=== PATIENT | male | born 1960 | race African-American/Black ===

== ENCOUNTER 2024-11-10 06:44 | Observation (INO) ==
--- NOTE | 2024-10-19 16:44 | History & Physical Report ---
Date of Service October 19, 2024 Assessment & Plan (1) Osteoarthritis of left hip: Plan: PRE-OP Diagnosis: Left hip osteoarthritis Planned Procedure: Left total hip arthroplasty Plan: Patient is scheduled to undergo this procedure at the [facility] with Dr. Wick on November. Risks and complications of the procedure such as: Infection, bleeding, pain, scarring, nerve blood vessel damage, weakness, wound problems, stiffness, incomplete relief of symptoms, hardware failure, hardware loosening, wear, fracture, tendon or ligament injury, dislocation, leg length inequality, blood clots, embolism, heart attack, stroke and were explained to the patient at his visit today. Informed consent to perform the procedure was obtained. Orders were sent to MOHIN[facility] Clay for the patient to obtain a CBC with differential, complete metabolic panel, PT/INR, blood type and screen, urinalysis, urine culture and sensitivity, EKG, and a nasal culture for MRSA. Patient will also need preoperative medical clearance from their primary care provider. Patient states that he plans on doing his own therapy for the most part. He states that therapy has offered 1 time a month and I provided him an order to do this with a therapist that comes to the [facility]. Patient will need a walker, raised toilet seat, shower chair and a hip kit. During today's visit we reviewed the total hip packet as well as precautions. We discussed discharge planning from the hospital. I wrote specific instructions in his packet for the [facility] to provide him with oxycodone for postoperative pain control, diclofenac sodium for postoperative pain and inflammation relief, extra-strength Tylenol for supplemental pain control and 81 mg aspirin twice daily for the first 30 days postoperatively for blood clot prevention. Patient will be scheduled for 2-week postoperative follow-up visit with myself on November 23, 2024 at 8:15 AM.. This chart was completed utilizing [employer] voice recognition software. Grammatical errors, random word insertions, pronoun errors, and in complete sentences are an occasional consequence of the system. Any questions or concerns about the content, text, or information contained within the body of this dictation should be addressed directly to the physician for clarification. History of Present Illness Chief Complaint: Chief Complaint: Left hip pain Primary Care Provider: MOHINI Clay History of Present Illness (including history relevant to procedure): This 64-year-old male inmate from [facility] presents to the clinic today for his preoperative history and physical. Patient complains of a 3 to 4-year history of significant left hip pain localized to the groin and posterior lateral aspect of his hip. Patient states the range of motion of his hip is very limited. He states his gait is antalgic. He states that his glutes feel very tight and he has radiation of pain from his lower back into his groin. He states that he has been on oral Voltaren 100 mg daily which does provide a little relief. He states that he has had multiple corticosteroid injections both intra-articular and to his trochanteric bursa without relief of his symptoms. Patient states he has great difficulty putting on socks or shoes. He states he is not able to participate in activities that he used to. Due to failed conservative management he is electing to proceed with surgical intervention. Review Of Systems: A 12 point review of systems is performed and is unremarkable except for those things stated in the HPI and past medical history. Past Medical History: Problems: Arthritis of left hip Biceps tendinitis on right Myofascial pain Synovial plica of knee NECK PAIN Cervical spondylosis Lower back pain HTN (hypertension) Hiatal hernia Umbilical hernia Procedure History Procedure Procedure Date Comments Appendix Allergies and Sensitivities: almonds(unknown) cashews(Anaphylaxis) Current Home Meds: (Last Updated 10/19 10:00) acetaminophen-oxyCODONE (Percocet 5/325 oral tablet) 1 tab PO tid amLODIPine 5 mg diclofenac 100 mg Allergies Allergy/AdvReac Type Severity Reaction Status Date / Time No Known Allergies Allergy Mild Unverified 07/31/05 15:20 [id number] Allergy Unknown Uncoded 12/21/02 11:56 Home Medications Medication Instructions Recorded Confirmed Type FEINALIL 20 PRN ##0 04/22/08 History Gabapentin (Neurontin) ##0 04/22/08 History Ibuprofen (Motrin) ##0 04/22/08 History Metaxalone (Skelaxin) ##0 04/22/08 History OXYCODONE/ACETAMINOPHEN 10MG/325MG ##0 04/22/08 History (PERCOCET 10MG/325MG) Past Med/Surg History Problem List (Updated 10/19/24 @ 16:43 by Herber J Daniel, PA-C) Osteoarthritis of left hip Review of Systems All systems reviewed & are unremarkable except as noted in Subjective Physical Exam Physical Exam: Initial Wt: 10/19 89.3 kg 196 lb Physical Exam: (relevant to the procedure, including heart and lung evaluation) General: Alert and oriented x 3 with proper grooming and hygiene Eyes: Pupils are equal and reactive to light with accommodation. Extraocular movements are intact Throat: Posterior oropharynx clear with absence of edema, erythema or exudate. Patient has upper and lower dentures. Gingiva was pink without noted abscess or open areas. Cardiac: Regular rate and rhythm with no murmurs or gallops appreciated Lungs: Clear to auscultation throughout with no wheezing, rales or rhonchi Abdomen: Obese, nondistended, nontender with NABS Extremities: Left hip: Flexion is limited to 85 degrees, internal rotation to -5 degrees and external rotation to 25 degrees. All of these positions cause referred pain to the groin area. Logroll test and Stinchfield test are both positive. Straight leg raise test causes referred pain to the groin and posterolateral hip. REVA test is positive at 4 fists. Patient is neurovascularly intact. Has no neurological deficit. His quad strength is 4+ out of 5. His gait is antalgic. Neuro: Cranial nerves II through XII are intact no motor or sensory deficit Skin: Normal in appearance with no open skin areas or discharge Results & Data Diagnostic Findings Studies (relevant to the procedure): AP, pelvis, cross table lateralof theleft hipobtained taken at [facility] showcomplete joint space loss. Collapse of the superior femoral head. Possible bone erosion of acetabulum.
--- NOTE | 2024-10-28 10:07 | Anesthesiology Consultation ---
Date of Service October 28, 2024 Assessment & Plan Chart Review Chart Review: Acceptable Risk for Surgery and Patient NOT seen in Pre Admission Testing History Surgery Operation Date: 11/10/24 08:15 Proposed Procedures p Left Total Hip Arthroplasty - Champ Wick MD Height/Weight Height: 6 ft 1 in Weight: 87.634 kg Allergies Allergy/AdvReac Type Severity Reaction Status Date / Time almond Allergy Unknown Verified 10/27/24 11:49 cashew nut Allergy Unknown Verified 10/27/24 11:49 No Known Drug Allergies Allergy Verified 10/27/24 11:49 Medications Home Medications Medication Instructions Recorded Confirmed Last Taken amlodipine 5 mg tablet 5 mg PO DAILY 10/27/24 10/27/24 Unknown ciprofloxacin HCl 500 mg tablet 500 mg PO BID 10/27/24 10/27/24 Unknown diclofenac sodium 100 mg 100 mg PO QAM 10/27/24 10/27/24 Unknown tablet,extended release 24 hr Past Medical History Medical History Inmate in correctional facility Other specified personal risk factors, not elsewhere classified Pain, unspecified Chest pain, unspecified Osteoarthrosis Chronic anal fissure Essential (primary) hypertension Hypercholesteremia Xerostomia Past Surgical History Surgical History Surgical history unknown Social History Smoking Status: Unknown if ever smoked
[~2024-11-10 06:44] MED LIST: BUPIVACAINE 0.5 % 5 MG/1 ML PF 10ML VIAL ONE; MIDAZOLAM HCL 1 MG/ML 2ML VIAL ONE
[2024-11-10] MEDS: LR 500ML BOLUS, THEN 15ML/HR IV SCH (07:22)
[2024-11-10] MEDS: LR 60ML/HR IV SCH (07:22)
[2024-11-10] MEDS: ACETAMINOPHEN 500 MG TAB PO SCH ×2 (07:24→13:23)
[2024-11-10] MEDS: dexAMETHasone**PF** 10 MG/ML VIAL IV SCH (07:24)
[2024-11-10] MEDS: CeleBREX 200 MG CAP PO SCH (07:24)
[2024-11-10] MEDS: FAMOTIDINE 20 MG TAB PO SCH (07:24)
[2024-11-10] MEDS ORDERED: ONDANSETRON INJ 2 MG/ML 2 ML VIAL IV PRN ×2 (07:30→12:12)
[2024-11-10] MEDS ORDERED: ATROPINE SULFATE 0.1 MG/ML 10ML SYR IV PRN (07:30)
[2024-11-10] MEDS ORDERED: PROPOFOL IV EMULSION 10 MG/ML 20 ML VIAL IV ONE ×2 (07:46→09:00)
[2024-11-10] MEDS ORDERED: ONDANSETRON INJ 2 MG/ML 2 ML VIAL ONE (07:46)
[2024-11-10] MEDS ORDERED: DexMEDEtomidine HCL IV 100 MCG/ML VIAL IV ONE (07:46)
[2024-11-10] MEDS ORDERED: LIDOCAINE 2% 2 ML VIAL/AMP(20MG/ML) INFIL ONE (07:48)
--- NOTE | 2024-11-10 07:58 | History & Physical Bridge Note ---
Date of Service November 10, 2024 History & Physical Bridge Note I have examined the patient, reviewed the History & Physical and in the interval since the performance of the History & Physical I have noted the following changes of clinical significance: no changes noted
[2024-11-10] MEDS: TRANEXAMIC ACID 1,000 MG **IV Pre-op IV SCH (08:00)
[2024-11-10] MEDS ORDERED: ePHEDrine sulfate 50 MG/5 ML SYR ONE (08:26)
[2024-11-10] MEDS: ROPIVACAINE 0.5% HCL/PF 246 MG, Ketorolac (*for OR use only*) 30 MG, EPINEPHrine 30MG/3... INFIL SCH (08:34)
[2024-11-10] MEDS: ORTHO JOINT ANESTHETIC ONE (08:35)
[2024-11-10] MEDS ORDERED: PHENYLEPHRINE HCL 10 MG/ML VIAL ONE (08:51)
--- NOTE | 2024-11-10 10:01 | Operative Report ---
Post Operative Report Pre & Post Diagnosis Operation Date: 11/10/24 08:15 Pre-Op Diagnosis: Left Hip Osteoarthritis Post-Op Diagnosis: Left Hip Osteoarthritis I identified the patient and participated in the time-out.: Yes Procedure Operation Date: 11/10/24 08:15 Actual Procedures p Left Total Hip Arthroplasty(Left) - Champ Wick MD Surgeon Champ Wick MD Entry Engineer Jeffry Dyson PA-C. No resident or fellow was available to assist. Estimated Blood Loss 300 Findings Consistent with Post-Op Diagnosis Specimens Left femoral head Anesthesia Type Spinal MAC Complications none Disposition Disposition: Recovery Room Indications 64-year-old male, incarcerated, with left hip osteoarthritis refractory to conservative management. X-rays demonstrated severe osteoarthritis with complete joint space collapse, and erosion of the acetabulum and femoral head with large osteophytes surrounding the joint. He was also noted to have a leg length discrepancy with the left shorter than the right. I had a long discussion with him about his diagnosis and treatment options. Having failed nonsurgical management he was a candidate for surgery. I reviewed the risks and benefits of surgery, alternatives, and expected outcomes. He understood that I could improve his leg length discrepancy, however it may not be exactly the same as the other side as we did not want to over lengthen his leg and cause a nerve palsy. After reviewing all of his options he elected to proceed with surgery. All questions were answered. Informed consent was signed. Description of Procedure Patient was identified in the preoperative holding area where the surgical site, left hip, was marked. A spinal anesthetic was placed, then the patient was brought back to the main operating room, placed in the operating table and moved into the lateral decubitus position. Axillary roll was placed. All bony prominences were padded. Perioperative antibiotics and tranexamic acid 1 gram IV were administered. The operative extremity was prepped and draped in the normal sterile fashion. Prior to incision a multidisciplinary timeout was called. All in the room were in agreement. We began by making an incision for a posterior approach to the hip. We dissected down through subcutaneous tissues to the level of the fascia. The fascia was incised in line with the incision. Charnley bow was placed. Fatty tissue was reflected posteriorly off the back of the greater trochanter to expose the piriformis and short external rotators of the hip. Quadratus femoris was taken off the femur subperiosteally. The piriformis and short external rotators were dissected off the posterior aspect of the hip. A box cut was made in the capsule. Inferior hip capsule was released off the femur. The femoral head was dislocated. Center of femoral head to intertrochanteric line distance was measured at 58 mm. The femoral neck cut was made at our preoperative template. The acetabulum was then exposed. The labrum was sharply excised. Contents of the cotyloid fossa were removed with electrocautery. We then began reaming at a size 8 mm less than our preoperative template. We reamed up by [address] the way up to a size 58 mm cup. This gave us good bleeding cancellus bone circumferentially. The acetabulum was then irrigated out and dried. The real Dubois Gription cup was then impacted down into position with 45 degrees of lateral opening and 25 degrees of anteversion. Two cancellous bone screws were placed up into the ilium. Excellent fixation was obtained. A trial liner for a 36 mm femoral head was then placed. Patient had large osteophytes around the anterior, posterior, and inferior aspects of the acetabulum. These were removed with a osteotome and rongeur. Next we turned our attention to the femur. The lateral neck was removed with a box osteotome. Intramedullary guide was used to establish the intramedullary canal. We then broached all the way up to a size 8. We began trialing with a standard offset neck and a +8.5 head. Center of head to intertrochanteric line distance now measured 66 mm. This was consistent with our plan to lengthen his left leg. Hip was reduced. Leg length check showed his left leg to be longer than it was preoperatively and felt to be near symmetric. The hip was stable in extension and external rotation, and stable in the sleeper position. At 90 degrees of hip flexion the hip could be internally rotated 70 degrees before levering out of the cup. I was very happy with the stability exam. Therefore the hip was dislocated and the femoral trial was removed. The acetabulum was re-exposed, and the trial liner was removed. [place] hole eliminator screw was placed. An Altrx polyethylene liner for a 36 mm femoral head was then impacted into the shell. The locking mechanism was checked to ensure that it had engaged which it had. The femur was re-exposed. The femoral canal was irrigated and dried. The real Actis femoral stem was opened up. This was impacted down into position. The femoral head was opened up and gently impacted down onto the trunnion. The hip was atraumatically reduced. Another 1 gram of IV tranexamic acid was started prior to closure. The wound was irrigated out with sterile Betadine solution. The periarticular injection cocktail was then placed. The short external rotators, piriformis, and posterior capsule were repaired through drill holes in the greater trochanter using #2 Vicryl. The fascia was run with a looped #1 PDS. The subcutaneous layer was closed with #1 PDS. The dermal layer was closed with 2-0 Vicryl. Zip line was used for the skin followed by a Silverlon dressing. A compressive dressing was then placed. The patient was then rolled supine. Leg lengths were rechecked and were symmetric. An abduction pillow was placed. Sedation was lifted and the patient was transferred to the recovery room in stable condition. Summary of implants: Depuy Dubois Gription Acetabular Shell Sector Cup, 58 mm outer diameter Two Dubois Cancellous bone screws, both 6.5 x 30 mm [place] hole eliminator Dubois Altrx Polyethylene Acetabular Liner, Neutral, with a 36 mm inner diameter DePuy Actis collared cementless Femoral stem, 12/14 taper, size 8 standard offset 36 mm ceramic femoral head with +8.5 offset Postoperative course: Patient will be admitted overnight from the recovery room. Patient will be weightbearing as tolerated with posterior hip precautions. Aspirin for DVT prophylaxis I attest to the content of the Intraoperative Record and any orders documented therein. Any exceptions are noted below.
--- NOTE | 2024-11-10 10:17 | Operative Report ---
Post Operative Report Pre & Post Diagnosis Operation Date: 11/10/24 08:15 Pre-Op Diagnosis: Left Hip Osteoarthritis Post-Op Diagnosis: Left Hip Osteoarthritis, Heterotopic ossification - gluteus minimus I identified the patient and participated in the time-out.: Yes Procedure Operation Date: 11/10/24 08:15 Actual Procedures p Left Total Hip Arthroplasty(Left), Excision of heterotopic ossification - gluteus minimus - Champ Wick MD Surgeon Champ Wick MD Wool Hat Finisher Jeffry Dyson PA-C. No resident or fellow was available to assist. Estimated Blood Loss 300 Findings Consistent with Post-Op Diagnosis Specimens Femoral head, heterotopic ossification Description of Procedure I was present for the entire case. I assisted with patient positioning, prepping, draping, retraction, suctioning, wound closure, dressing application. Please refer to Dr. Wick's procedure note for full details. I attest to the content of the Intraoperative Record and any orders documented therein. Any exceptions are noted below.
--- NOTE | 2024-11-10 10:33 | XRay Report ---
XR hip 1V LT w pelvis CLINICAL HISTORY: IN PACU - Post Surgical COMPARISON: 10/19/2024 FINDINGS: Left hip prosthesis shows no hardware complication. There is expected soft tissue gas. The re are moderate degenerative changes at the right hip. IMPRESSION: Unremarkable postoperative exam. ACT 112: Negative or not required by law. Electronically signed by: Donavon Castillo M.D. 11/10/2024 10:31 AM
--- NOTE | 2024-11-10 11:12 | Anesthesiology Progress Note ---
Date of Service November 10, 2024 Anesthesia Post Procedure Vital Signs Vital Signs: Temp Pulse Pulse Resp BP BP Pulse Ox 11/10/24 11:00 77 12 100/58 L 94 11/10/24 10:50 70 12 100/55 L 94 11/10/24 10:40 65 14 98/53 L 102/55 L 94 11/10/24 10:30 73 14 94/60 L 95 11/10/24 10:20 71 14 95/56 L 100 11/10/24 10:10 70 13 117/70 100 11/10/24 10:03 97.2 F L 76 12 127/72 98 11/10/24 07:15 97.5 F L 66 18 168/84 H 96 O2 Del Method O2 Flow Rate 11/10/24 11:00 Room Air 11/10/24 10:50 Room Air 11/10/24 10:40 Room Air 11/10/24 10:30 Room Air 11/10/24 10:20 Oxymask 6 11/10/24 10:10 Oxymask 6 11/10/24 10:03 Oxymask 6 11/10/24 07:15 Room Air Transfer of Care Handoff Completed per policy Notes Mental Status: alert / awake / arousable and participated in evaluation Patient Amnestic to Procedure: Yes Nausea / Vomiting: adequately controlled Pain: adequately controlled Airway Patency, RR, SpO2: stable & adequate BP & HR: stable & adequate Hydration State: stable & adequate Neuraxial Anesthesia: was administered and sensory block is resolving Anesthetic Complications: no major complications apparent and Pt Satisfied with anesthetic care
[2024-11-10] MEDS ORDERED: MAGNESIUM HYDROXIDE SUSP 30 ML UDC PO PRN (12:12)
[2024-11-10] MEDS ORDERED: METOCLOPRAMIDE HCL INJ 5 MG/ML 2 ML VIAL IV PRN (12:12)
[2024-11-10] MEDS ORDERED: HYDROmorphone INJ 0.5 MG/0.5 ML SYR IV PRN (12:12)
[2024-11-10] MEDS ORDERED: diphenhydrAMINE Capsule 25 MG CAP PO PRN (12:12)
[2024-11-10] MEDS ORDERED: NALOXONE HCL 0.4 MG/1 ML VIAL/CARP IV PRN (12:12)
[2024-11-10] MEDS ORDERED: TAMSULOSIN HCL 0.4 MG CAP PO PRN (12:12)
[2024-11-10] MEDS: KETOROLAC TROMETHAMINE 15 MG/ML VIAL IV SCH (12:44)
[2024-11-10] MEDS: SODIUM CHLORIDE 0.9% 1,000 ML IV SCH (12:44)
[2024-11-10] MEDS: Scopolamine CHECK PATCH PLACEMENT SCH (15:56)
[2024-11-10] MEDS: TRANEXAMIC ACID / 0.7% NACL 1,000 MG/100 ML BAG IV SCH (16:08)
--- NOTE | 2024-11-10 18:14 | Hospitalist Consultation ---
Date of Consultation November 10, 2024 Assessment & Plan (1) Chest pain: (2) S/P total left hip arthroplasty: Patient is a 64-year-old male with past medical history significant for HTN, HLD, generalized osteoarthritis and chronic anal fissure who is being seen in consultation for evaluation of postoperative chest pain s/p elective left total hip arthroplasty performed by Dr. Wick for management of left hip osteoarthritis. Stat EKG obtained and personally reviewed. NSR, no acute ST changes. Appears unchanged when compared to prior EKG done last month. TTE pending. Troponin x 2 negative. Will get another repeat troponin later this evening, follow result. Repeat EKG with chest pain recurrence as needed. Suspect noncardiac etiology. Of note, patient had an unremarkable nuclear stress test done about 4 or 5 months ago. Patient has been on oral diclofenac for several years for management of generalized osteoarthritis. + persistent belching. Does have history of bleeding gastric ulcer several years ago while in the [facility]. Trial IV PPI BID. As needed Maalox. Oral Celebrex ordered by primary service which we will place on hold for now. Continue to hold home oral diclofenac (has been on hold for several days prior to surgery). Aspirin 81 mg twice daily ordered for DVT prophylaxis by primary service. Will continue this for now. Recommend GI follow-up for EGD evaluation as an outpatient. (3) Hyperglycemia: Noted postoperatively. Did receive dexamethasone preoperatively. No prior history of diabetes. Will check hemoglobin A1c in the morning. Will cover with loose sliding scale coverage for now, BSG checks ACHS. (4) HTN (hypertension): Continue amlodipine with hold parameters, routine BP monitoring. (5) HLD (hyperlipidemia): Continue atorvastatin. DVT Prophylaxis: As per primary service Code Status: FULL CODE PCP: MOHINI Clay Disposition: Routine DC planning as per primary service. Awaiting TTE results but doubt cardiac etiology at this time, can hold off on telemetry monitoring. Thank you for this consultation. We will follow the patient with you during their hospital stay. You can reach a member of the [facility]ist Team 01/09 via Relevant e-solution. Patient seen in collaboration with Dr. Reyes. Please see addendum. I spent a total of 48 minutes coordinating, documenting, and providing care for this patient excluding time spent in the performance of separately billed services or time spent by another provider/QHP. This included personally reviewing all current laboratories and imaging studies, medical reconciliation, outpatient chart review and discussion with specialists. This chart was completed in part utilizing Speech Voice Recognition Software. Grammatical errors, random word insertions, pronoun errors, and incomplete sentences are an occasional consequence of this system due to software limitations, ambient noise, and hardware issues. Any formal questions or concerns about the content, text, or information contained within the body of this dictation should be directly addressed to the provider for clarification. Supervising Physician Co-Signing Physician Notes Attending Addendum: Case reviewed with the advanced practitioner. I have personally performed a history and physical examination on the patient. I have reviewed the advanced practitioner's documentation on the date of service referenced in note, and I agree with, and take responsibility for the plan of care. please refer to her notes for full details patient seen and examined, records reviewed by myself as well on exam, patient seen resting in bed, comfortable reports mild left lower chest discomfort, dull, now 2/10 from 4/10 after being given maalox and protonix associated with excessive belching states above symptoms exacerbated by taking Diclofenac po (GI symptoms resolved when he stopped Diclofenac 5 days before surgery) denies melena/hematochezia, hematemesis, anorexia, dysphagia no dyspnea, palpitations, dizziness no other symptoms VS noted and reviewed oriented x 3 , not in distress, speaks in sentences with no effort nor accessory muscle use normal rate, regular rhythm, no murmurs clear breath sounds bilaterally non distended, soft, nontender no bipedal edema, erythema, warmth no neuro deficits all labs, imaging noted and reviewed ASSESSMENT AND PLAN> CHEST PAIN likely GI etiology- possible gastritis, peptic ulcer disease, in the setting of chronic Diclofenac use (5 yrs) -- worsened by IV Decadron -- improving with Maalox and Protonix continue Protonix BID and PRN Maalox recommend to NSAIDs if ASA BID is recommended for DVT prophylaxis, always take with a full stomach recommend ff up with GI as outpatient soon for consideration of EGD r/o ACS -- trop x 1 negative, trend EKG no signs of acute ischemia echo in AM had a stress test 4 months ago negative HTN - continue Amlodipine HLD - continue statin other diagnoses and plan of care as per advanced practitioner's notes I spent a total of 35 minutes coordinating, documenting, and providing care for this patient, excluding time spent in the performance of separately billed services or time spent by another provider/QHP. Mauricio Reyes MD History of Present Illness Reason for Consultation: Chest pain s/p left total hip arthroplasty Requesting Physician: Champ Wick MD Attending Physician: Champ Wick MD History of Present Illness Patient is a 64-year-old male with past medical history significant for HTN, HLD, generalized osteoarthritis and chronic anal fissure who is being seen in consultation for evaluation of postoperative chest pain s/p elective left hip arthroplasty performed by Dr. Wick for management of left hip osteoarthritis. History obtained from the patient and associated chart review. Patient seen at bedside in room 305-[address] Reyes. Started to have left-sided chest pain shortly after surgery upon arrival to the third floor. Described as dull/achy sensation. No radiation of pain. Stat EKG obtained which revealed NSR, no evidence of acute ST changes. Stat troponin also obtained which was negative. Patient recalls having a nuclear cardiac stress test done about 4 to 5 months ago which came back unremarkable. Not on any blood thinning medications. No prior history of RI Or major cardiac events. Does recall having a bleeding gastric ulcer many years ago while in the [facility]. States this was managed with a "GI cocktail." Has been on oral diclofenac for at least the past 5 years for joint related pain. States "I cannot get around without this medication." Allergies Allergy/AdvReac Type Severity Reaction Status Date / Time almond Allergy Unknown Verified 11/10/24 07:11 cashew nut Allergy Unknown Verified 11/10/24 07:11 No Known Drug Allergies Allergy Verified 11/10/24 07:11 Home Medications Medication Instructions Recorded Confirmed Type amlodipine 5 mg tablet 5 mg PO DAILY 10/27/24 11/10/24 History diclofenac sodium 100 mg 100 mg PO QAM 10/27/24 11/10/24 History tablet,extended release 24 hr atorvastatin 10 mg tablet (Lipitor) 10 mg PO DAILY 11/10/24 11/10/24 History Patient History Medical History (Updated 11/10/24 @ 20:01 by Candace Allen PA-C) Inmate in correctional facility Other specified personal risk factors, not elsewhere classified Pain, unspecified Chest pain, unspecified Osteoarthrosis Chronic anal fissure Essential (primary) hypertension Hypercholesteremia Xerostomia Surgical History (Updated 11/10/24 @ 19:53 by Candace Allen PA-C) History of appendectomy Surgical history unknown Social History Smoking Status: Unknown if ever smoked Preferred Language: Unknown Communication Ability: Unknown Wedding Decorator Required: No Current Living Situation: Other Current Living Situation Comment: inmate [facility] [place] Assistive Devices Comment: Unknown Review of Systems Review of Systems: At least ten systems reviewed and negative, except as noted in the HPI. Physical Exam Physical Exam: Please refer to Dr. Reyes's addendum for physical examination findings. Results & Data Results & Data Vital Signs (Past 12 Hours) Vital Signs Temp Pulse Pulse Resp BP BP Pulse Ox 11/10/24 17:52 81 16 123/70 95 11/10/24 15:40 36.4 C L 79 18 103/65 96 11/10/24 14:15 68 16 99/61 L 96 11/10/24 13:22 67 16 105/66 95 11/10/24 12:42 66 16 95/58 L 94 11/10/24 12:12 36.4 C L 67 16 94/58 L 94 11/10/24 11:50 36.4 C L 74 14 104/54 L 95 11/10/24 11:40 68 14 100/57 L 98 11/10/24 11:30 66 16 98/51 L 95 11/10/24 11:20 70 14 97/52 L 95 11/10/24 11:10 68 13 103/55 L 95 11/10/24 11:00 77 12 100/58 L 94 11/10/24 10:50 70 12 100/55 L 94 11/10/24 10:40 65 14 98/53 L 102/55 L 94 11/10/24 10:30 73 14 94/60 L 95 11/10/24 10:20 71 14 95/56 L 100 11/10/24 10:10 70 13 117/70 100 11/10/24 10:03 36.2 C L 76 12 127/72 98 11/10/24 07:15 36.4 C L 66 18 168/84 H 96 O2 Del Method O2 Flow Rate 11/10/24 17:52 Room Air 11/10/24 15:40 Room Air 11/10/24 14:15 Room Air 11/10/24 13:22 Room Air 11/10/24 12:42 Room Air 11/10/24 12:12 Room Air 11/10/24 11:50 Room Air 11/10/24 11:40 Room Air 11/10/24 11:30 Room Air 11/10/24 11:20 Room Air 11/10/24 11:10 Room Air 11/10/24 11:00 Room Air 11/10/24 10:50 Room Air 11/10/24 10:40 Room Air 11/10/24 10:30 Room Air 11/10/24 10:20 Oxymask 6 11/10/24 10:10 Oxymask 6 11/10/24 10:03 Oxymask 6 11/10/24 07:15 Room Air Laboratory Results Short CBC 11/10/24 Range/Units 18:52 WBC 11.05 H (4.8-10.8) K/ul Hgb 12.4 L (14.0-18.0) g/dl Hct 37.7 L (42.0-52.0) % Plt Count 235 (130-400) K/uL BMP 11/10/24 18:21 Sodium 136 Potassium 4.3 Chloride 107 Carbon Dioxide 22 BUN 19 Creatinine 1.25 Glucose 224 H Calcium 8.4 L Diagnostic Findings Hip/Pelvis X-Ray 11/10/24 10:15 XR hip 1V LT w pelvis CLINICAL HISTORY: IN PACU - Post Surgical COMPARISON: 10/19/2024 FINDINGS: Left hip prosthesis shows no hardware complication. There is expected soft tissue gas. There are moderate degenerative changes at the right hip. IMPRESSION: Unremarkable postoperative exam. ACT 112: Negative or not required by law. Electronically signed by: Donavon Castillo M.D. 11/10/2024 10:31 AM (1) Chest pain Chest pain type: unspecified Qualified Code(s): R07.9 - Chest pain, unspecified
[2024-11-10] MEDS: ALUMINUM/MAGNESIUM SUSP 30 ML UDC PO STA (18:36)
[2024-11-10] MEDS: PANTOprazole 40 MG/10 ML SYR IV SCH (18:37)
[2024-11-10 19:03] LABS: Hematocrit (blood only) 37.7 % (42.0-52.0); Hemoglobin 12.4 g/dl (14.0-18.0); Mean Corpuscular Hemoglobin 29.8 pg (25.0-34.0); Mean Corpuscular Volume 90.6 fL (80.0-100.0); Platelet Count 235 K/uL (130-400); RDW Standard Deviation 43.8 fL (36.4-46.3); Red Blood Count 4.16 M/uL (4.70-6.10); White Blood Count 11.05 K/ul (4.8-10.8)
[2024-11-10 19:04] LABS: Anion Gap 7.0 (3-11); Blood Urea Nitrogen 19.0 mg/dl (6-23); Calcium 8.4 mg/dl (8.6-10.3); Carbon Dioxide 22.0 mmol/L (21-32); Chloride 107.0 mmol/L (98-107); Creatinine Clr Calc Pharmacy 66.6 ml/min; Glucose 224.0 mg/dl (70-99(Fasting)); Potassium 4.3 mmol/L (3.5-5.1); Sodium 136.0 mmol/L (136-145)
[2024-11-10] MEDS ORDERED: GLUCAGON FOR INJ 1 MG VIAL SQ PRN (20:02)
[2024-11-10] MEDS ORDERED: GLUCOSE 10 TAB/TUBE PO PRN (20:02)
[2024-11-10] MEDS ORDERED: CARBOHYDRATES FOR HYPOGLYCEMIA PO PRN (20:02)
[2024-11-10] MEDS ORDERED: GLUCOSE 40% GEL 15 GM TUBE PO PRN (20:02)
[2024-11-10] MEDS ORDERED: DEXTROSE 50% 50 ML SYRINGE IV PRN (20:02)
[2024-11-10] MEDS: SENNA 8.6 MG TAB PO SCH (21:25)
[2024-11-10] MEDS: DOCUSATE SODIUM 100 MG CAP PO SCH (21:25)
[2024-11-10] MEDS: INSULIN ASPART PER UNIT CHARGE SC SCH (21:30)
[2024-11-10 23:04] VITALS: RESP 18
[2024-11-11 06:42] LABS: Hematocrit (blood only) 35.5 % (42.0-52.0); Hemoglobin 11.7 g/dl (14.0-18.0); Immature Granulocytes # (auto) 0.09 K/uL (0.01-0.20); Immature Granulocytes % (auto) 0.6 %; Mean Corpuscular Hemoglobin 30.0 pg (25.0-34.0); Mean Corpuscular Volume 91.0 fL (80.0-100.0); Platelet Count 212 K/uL (130-400); RDW Standard Deviation 45.6 fL (36.4-46.3); Red Blood Count 3.90 M/uL (4.70-6.10); White Blood Count 16.03 K/ul (4.8-10.8)
[2024-11-11 06:55] LABS: Anion Gap 6.0 (3-11); Calcium 8.3 mg/dl (8.6-10.3); Carbon Dioxide 22.0 mmol/L (21-32); Chloride 109.0 mmol/L (98-107); Potassium 4.3 mmol/L (3.5-5.1); Sodium 137.0 mmol/L (136-145)
[2024-11-11 07:01] LABS: Blood Urea Nitrogen 17.0 mg/dl (6-23); Creatinine Clr Calc Pharmacy 84.1 ml/min; Glucose 113.0 mg/dl (70-99(Fasting))
[2024-11-11 08:03] VITALS: BP 110/66; PULSE 64; TEMP 97.9; O2SAT 95
[2024-11-11 08:08] LABS: Hemoglobin A1C 5.8 % (4.5-5.6)
[2024-11-11] MEDS: dexAMETHasone 10 MG in SYRINGE 0 ML IV SCH (08:11)
[2024-11-11] MEDS: MULTIVITAMIN TAB PO SCH (08:12)
[2024-11-11] MEDS: ATORVASTATIN 10 MG TAB PO SCH (08:12)
[2024-11-11] MEDS: ASPIRIN 81 MG ECTAB PO SCH (08:12)
[2024-11-11] MEDS ORDERED: CeleBREX 200 MG CAP PO SCH (09:00)
--- NOTE | 2024-11-11 10:03 | Orthopedic Progress Note ---
Date of Service November 11, 2024 Assessment & Plan (1) S/P total left hip arthroplasty: Plan: Total hip precautions reviewed Weightbearing as tolerated with walker assistance Ice with easy wrap Keep Silverlon dressing in place Abduction pillow use x 6 weeks PT/OT DVT prophylaxis with aspirin and SHARMIN stockings Will need follow-up with GI as an outpatient per hospitalist recommendation GERD treatment with Prilosec 20 mg twice daily for the next 30 days Pain and inflammation relief with Celebrex 100 mg twice daily for the next 30 days Plan is to [facility]. Follow-up at [facility] orthopedics previously scheduled With questions contact our clinic at [phone] Admission and Anticipated Discharge Date Admission Date: November 10, 2024 Subjective This 64-year-old male inmate from [facility] is day 1 status post left total hip arthroplasty. Patient states that he is doing very well. He states that his pain is well-controlled with p.o. pain medication. Currently denies chest pain, shortness of breath, fever, chills, sweats, nausea, vomiting, diarrhea or difficulty voiding. He also has no complaint of numbness or tingling in the left lower extremity. Review of Systems Review of Systems: All systems reviewed & are unremarkable except as noted in Subjective Physical Exam Physical Exam: Left hip: Outer dressing is removed. Silverlon is clean dry, intact and left in place. Patient is able to perform active straight leg raise test. He is able to actively dorsi and plantarflex his foot. He tolerates passive hip flexion near 80 degrees and experiences no discomfort with light passive internal and external hip rotation. Logroll test causes no discomfort. Patient is neurovascularly intact in the left lower extremity. Results & Data Vital Signs (Past 12 Hours) Vital Signs Temp Pulse Resp BP BP Pulse Ox O2 Del Method 11/11/24 07:30 36.6 C 64 18 110/66 95 Room Air 11/11/24 04:15 36.7 C 67 18 110/62 96 Room Air 11/10/24 23:03 36.9 C 65 18 131/67 95 Room Air Diagnostic Findings Laboratory Results WBC 16.03 K/ul (4.8-10.8) H 11/11/24 05:21 RBC 3.90 M/uL (4.70-6.10) L 11/11/24 05:21 Hgb 11.7 g/dl (14.0-18.0) L 11/11/24 05:21 Hct 35.5 % (42.0-52.0) L 11/11/24 05:21 MCV 91.0 fL (80.0-100.0) 11/11/24 05:21 MCH 30.0 pg (25.0-34.0) 11/11/24 05:21 MCHC 33.0 g/dL (32.0-36.0) 11/11/24 05:21 RDW Std Deviation 45.6 fL (36.4-46.3) 11/11/24 05:21 RDW Coeff of Joaquina 13.6 % (11.5-14.5) 11/11/24 05:21 Plt Count 212 K/uL (130-400) 11/11/24 05:21 MPV 10.3 fL (9.4-12.4) 11/11/24 05:21 Immature Gran % (Auto) 0.6 % 11/11/24 05:21 Neut % (Auto) 82.2 % 11/11/24 05:21 Lymph % (Auto) 9.1 % 11/11/24 05:21 Lawrence % (Auto) 8.0 % 11/11/24 05:21 Eos % (Auto) 0.0 % 11/11/24 05:21 Baso % (Auto) 0.1 % 11/11/24 05:21 Neut # (Auto) 13.17 K/uL (1.40-6.50) H 11/11/24 05:21 Lymph # (Auto) 1.46 K/uL (1.20-3.40) 11/11/24 05:21 Lawrence # (Auto) 1.29 K/uL (0.11-0.59) H 11/11/24 05:21 Eos # (Auto) 0.00 K/uL (0.00-0.50) 11/11/24 05:21 Baso # (Auto) 0.02 K/uL (0.00-0.20) 11/11/24 05:21 Immature Gran # (Auto) 0.09 K/uL (0.01-0.20) 11/11/24 05:21 Sodium 137 mmol/L (136-145) 11/11/24 05:21 Potassium 4.3 mmol/L (3.5-5.1) 11/11/24 05:21 Chloride 109 mmol/L (98-107) H 11/11/24 05:21 Carbon Dioxide 22 mmol/L (21-32) 11/11/24 05:21 Anion Gap 6 (3-11) 11/11/24 05:21 BUN 17 mg/dl (6-23) 11/11/24 05:21 Creatinine 0.99 mg/dl (0.6-1.4) 11/11/24 05:21 Est Cr Clr Drug Dosing 84.1 ml/min 11/11/24 05:21 eGFR 84.54 11/11/24 05:21 BUN/Creatinine Ratio 17.2 (10-20) 11/11/24 05:21 Glucose 113 mg/dl (70-99(Fasting)) H 11/11/24 05:21 POC Glucose 123 mg/dl (70-99) H 11/11/24 07:33 Estimat Average Glucose 120 mg/dl 11/11/24 05:21 Hemoglobin A1c 5.8 % (4.5-5.6) H 11/11/24 05:21 Calcium 8.3 mg/dl (8.6-10.3) L 11/11/24 05:21 Troponin I High Sens 3.8 pg/ml (0-20) 11/11/24 00:49 SARS-CoV-2, RNA, NAAT NEGATIVE (NEGATIVE) 11/10/24 Unknown Blood Type A Positive 11/10/24 07:09 Antibody Screen NEGATIVE 11/10/24 07:09 Impressions Hip/Pelvis X-Ray 11/10/24 10:15 XR hip 1V LT w pelvis CLINICAL HISTORY: IN PACU - Post Surgical COMPARISON: 10/19/2024 FINDINGS: Left hip prosthesis shows no hardware complication. There is expected soft tissue gas. There are moderate degenerative changes at the right hip. IMPRESSION: Unremarkable postoperative exam. ACT 112: Negative or not required by law. Electronically signed by: Donavon Castillo M.D. 11/10/2024 10:31 AM
--- NOTE | 2024-11-11 10:11 | Discharge Summary ---
Date of Service November 11, 2024 Admission HPI Per Admitting Provider History of Present Illness (including history relevant to procedure): This 64-year-old male inmate from [facility] presents to the clinic today for his preoperative history and physical. Patient complains of a 3 to 4-year history of significant left hip pain localized to the groin and posterior lateral aspect of his hip. Patient states the range of motion of his hip is very limited. He states his gait is antalgic. He states that his glutes feel very tight and he has radiation of pain from his lower back into his groin. He states that he has been on oral Voltaren 100 mg daily which does provide a little relief. He states that he has had multiple corticosteroid injections both intra-articular and to his trochanteric bursa without relief of his symptoms. Patient states he has great difficulty putting on socks or shoes. He states he is not able to participate in activities that he used to. Due to failed conservative management he is electing to proceed with surgical intervention. Review Of Systems: A 12 point review of systems is performed and is unremarkable except for those things stated in the HPI and past medical history. Past Medical History: Problems: Arthritis of left hip Biceps tendinitis on right Myofascial pain Synovial plica of knee NECK PAIN Cervical spondylosis Lower back pain HTN (hypertension) Hiatal hernia Umbilical hernia Procedure History Procedure Procedure Date Comments Appendix Allergies and Sensitivities: almonds(unknown) cashews(Anaphylaxis) Current Home Meds: (Last Updated 10/19 10:00) acetaminophen-oxyCODONE (Percocet 5/325 oral tablet) 1 tab PO tid amLODIPine 5 mg diclofenac 100 mg Admission Exam Per Admitting Provider Initial Wt: 10/19 89.3 kg 196 lb Physical Exam: (relevant to the procedure, including heart and lung evaluation) General: Alert and oriented x 3 with proper grooming and hygiene Eyes: Pupils are equal and reactive to light with accommodation. Extraocular movements are intact Throat: Posterior oropharynx clear with absence of edema, erythema or exudate. Patient has upper and lower dentures. Gingiva was pink without noted abscess or open areas. Cardiac: Regular rate and rhythm with no murmurs or gallops appreciated Lungs: Clear to auscultation throughout with no wheezing, rales or rhonchi Abdomen: Obese, nondistended, nontender with NABS Extremities: Left hip: Flexion is limited to 85 degrees, internal rotation to -5 degrees and external rotation to 25 degrees. All of these positions cause referred pain to the groin area. Logroll test and Stinchfield test are both positive. Straight leg raise test causes referred pain to the groin and posterolateral hip. REVA test is positive at 4 fists. Patient is neur ovascularly intact. Has no neurological deficit. His quad strength is 4+ out of 5. His gait is antalgic. Neuro: Cranial nerves II through XII are intact no motor or sensory deficit Skin: Normal in appearance with no open skin areas or discharge Principal Diagnosis left hip osteoarthritis Discharge Exam Left hip: Outer dressing is removed. Silverlon is clean dry, intact and left in place. Patient is able to perform active straight leg raise test. He is able to actively dorsi and plantarflex his foot. He tolerates passive hip flexion near 80 degrees and experiences no discomfort with light passive internal and external hip rotation. Logroll test causes no discomfort. Patient is neurov ascularly intact in the left lower extremity. Discharge Data Allergies Allergy/AdvReac Type Severity Reaction Status Date / Time almond Allergy Unknown Verified 11/10/24 07:11 cashew nut Allergy Unknown Verified 11/10/24 07:11 No Known Drug Allergies Allergy Verified 11/10/24 07:11 Consultations 11/10/24 17:59 Consult Hospitalist Stat Procedures Performed Operation Date: 11/10/24 08:15 Actual Procedures p Left Total Hip Arthroplasty, Excision of Heterotopic Ossification(Left) - Champ Wick MD Hospital Course (1) S/P total left hip arthroplasty: Patient had an uneventful overnight stay following left total hip arthroplasty. He will be discharged back to the [facility] later this morning. He will do physical therapy when available and understands exercises that he can do on his own. If he has questions he will relay them to the medical staff and they will contact our clinic. Patient did require her consult by the hospitalist service who recommended that the patient follow-up with a GI doctor as an outpatient for possible EGD. Total hip precautions reviewed Weightbearing as tolerated with walker assistance Ice with easy wrap Keep Silverlon dressing in place Abduction pillow use x 6 weeks PT/OT DVT prophylaxis with aspirin and SHARMIN stockings Will need follow-up with GI as an outpatient per hospitalist recommendation GERD treatment with Prilosec 20 mg twice daily for the next 30 days Pain and inflammation relief with Celebrex 100 mg twice daily for the next 30 days Plan is to discharge back to the [place] [facility] later today. Follow-up at [facility] orthopedics previously scheduled With questions contact our clinic at [phone] Total Time Total Time Spent Total Time Spent (In Minutes): 20 mins Discharge Plan Discharge Items [facility]position: [facility] Reason For Visit: Left Hip Osteoarthritis Discharge Diagnosis: left hip osteoarthritis Activity: As commented below Lifting: None Bathing: Keep incision dry Bathing Comment: May shower today Sexual Activity: Wait until after follow-up appointment Exercise/Sports: Wait until after follow-up appointment Weightbearing: Left weightbearing Weightbearing Comment: As tolerated with walker assistance Non-emergency contact: Primary Care Provider and Surgeon Call non-emergency contact if: you have any medication questions, your pain is not controlled, your temperature is above 101.5, your wound has increased drainage and your wound pain has increased Follow-up/Referrals: Danna RAJAN [Primary Care Provider] - Diet: Regular Addtl Attending Provider Instructions: Post-operative Instructions Dear Patient and Family/Friends, Before you are discharged from the hospital, it is important to know what to expect when you get home after surgery. To that end, we have created this sheet of discharge instructions which covers many commonly asked questions. Make sure you go through this sheet in its entirety with your nurse before you are discharged. Please note that we will go over the specifics of your surgery and recovery when you return for your first post-operative visit. Sincerely, Dr. Wick Pain Expect to be in a fair amount of pain after surgery. Remember, our goal is not to eliminate your pain, but to make it tolerable. It is a good idea to stay ahead of your pain by taking the medications you were prescribed once you get home. Typically, the pain starts improving 3-7 days after surgery. You should start weaning off the narcotic pain medication (oxycodone, hydrocodone, hydromorphone, morphine) as soon as your pain improves. Please call our office if your pain is not adequately controlled. Ice Ice your operative site at least 5 times a day for 15-30 minutes at a time. Make sure you have a thin cloth between the ice or cooling unit and your skin to prevent moya bite. This is especially important if you received a nerve block. Continue icing your operative site for the first 5-7 days after surgery, then as needed. Diet/Nausea/Vomiting Start by drinking clear liquids and eating crackers. If you can tolerate this, then you may resume your normal diet. If you feel nauseated or vomit, take Zofran/ondansetron (if prescribed). Please call our office if you have intractable nausea or vomiting, or, if after hours, you may go to the Emergency Room for help. Constipation Constipation is a common side effect of narcotic pain medication. If you have not had a bowel movement within 2 days after surgery, we recommend purchasing an over the counter laxative such as Milk of Magnesia, Dulcolax, or Miralax from a local pharmacy, and taking it as instructed. Call our clinic if any questions. Nerve block The anesthesia team sometimes places a nerve block to help with post-operative pain control. This results in significant numbness and inability to move the extremity. The nerve block usually wears off in 8-12 hours, but sometimes can last up to 24 hours. Please call our office if you are still unable to move your extremity after 24 hours, unless you received a pain pump to take home. Nerve blocks typically wear off quickly, so start taking pain medication as soon as you start feeling soreness near your surgical site. Weight bearing and Range of Motion. Do not bear any weight through your operative extremity immediately after surgery. If you had upper extremity surgery, do not lift anything with that arm. If you are in a knee brace, keep it locked in place until your follow-up. We will discuss your weight bearing, range of motion, and lifting restrictions in detail at your first post-operative appointment. Continuous Passive Motion (CPM) Machine If you were prescribed a CPM machine, it will start after your first post- operative appointment, at which time we will give you instructions on the range of motion settings and duration of treatment Physical therapy You will be given a prescription for physical therapy or occupational therapy at your first post-operative appointment. Typically, patients start therapy within 1 week of surgery Wound care and showering We will inspect your wound at your first post-operative visit, and may do a dressing change at that time. Most patients will be in a water-proof dressing that is removed 14 days after surgery. It is normal to see some dried blood on the dressing. Do not remove your dressing, paper strips or sutures yourself unless you are given permission. Showering is allowed the day after surgery. Do not scrub or remove any dressings. The wound should not be submerged underwater (i.e. in a bathtub or pool) until 4 weeks after surgery SHARMIN stockings If you were given white stockings, these are to be worn at all times except to shower (on both legs) for the first 2 weeks after surgery. Driving You may not drive while taking narcotic pain medication or while in a cast, splint, sling or brace. You, the patient, need to make the final determination about when you are safe to drive, however, the earliest you may consider driving after surgery is below: Hand/Wrist/Elbow Surgery: 3 days Shoulder Surgery: 2 weeks Hip,/Knee/Ankle Surgery: 4 weeks Fracture repair: 6 weeks Return to Work Your return to work depends on what surgery was done and what type of work you do. Please bring any paperwork your employer needs completed to your first post-operative visit. Also, bring a description of your job duties, as this helps us to understand what risks you may face at work. Travel Avoid long distance travel (greater than 1 hour) in airplanes and cars for the first 6 weeks after surgery. If you must travel, you need to have a Doppler ultrasound done before you travel to rule out a blood clot in your legs. Follow-up You should have a follow-up appointment already scheduled 1-2 days after surgery. If not, please contact our office to make this appointment before you leave the hospital. When to call the office It is normal to have swelling and bruising in the limb that was operated on. This will improve with time. It is also normal to have fevers for the first 2 days after surgery. Reasons you should call your doctor include: Uncontrolled pain; Nausea, vomiting, or constipation that does not improve with medication; Fevers over 101.5, chills, sweats; Drainage or bleeding from the wound; Foul odor; Spreading areas of redness; Any other concerns. Contact Information Please call Dr. Wick's office at [phone] with any concerns. Pending Studies at Discharge: No Skilled Items Patient informed of condition?: Yes DNR: No Discharge Level of Care: Other Communicable Disease: No Discharge Prognosis: Stable Lines: None Urinary Catheter: No Medications and DC Order Prescriptions: New aspirin 81 mg Tablet,Delayed Release (Dr/Ec) 81 mg PO BID 30 Days Qty: 60 0RF acetaminophen [Tylenol Extra Strength] 500 mg Tablet 1,000 mg PO Q8 30 Days Qty: 180 0RF celecoxib 100 mg capsule 100 mg PO BID 30 Days Qty: 60 0RF oxycodone 5 mg Tablet 5 - 10 mg PO Q4H PRN (Reason: pain) Qty: 20 0RF omeprazole 20 mg capsule,delayed release(DR/EC) 20 mg PO BID 30 Days Qty: 60 0RF Continued diclofenac sodium 100 mg Tablet Extended Release 24 Hr 100 mg PO QAM Rx Instructions: do not take on empty stomach amlodipine 5 mg Tablet 5 mg PO DAILY atorvastatin [Lipitor] 10 mg Tablet 10 mg PO DAILY Admission Data Admit Date/Time: 11/10/24 10:15 Attending Provider: Champ Wick Admit Provider: Champ Wick Primary Care Provider: Danna RAJAN Other Providers: Evelyn Vicente; Laila Smith I.; Skip Easton; May Adair; Erum Chaidez; Yaquelin Jasso; Amy Stone; Gerardo Godinez; Oni Carey; Boogie Singh; Mauricio Reyes; Marija Gage; Denis Farias; Mily Fuentes; Lori West; Guadalupe Jack; Tee Ray; Evelia Stanford I.; Sumanth Arce; Juliet Stokes; Jana Martinez; Carl Stauffer; Georges Joe; Raul Farrell; Emily Motta; Candace Allen; Phuc Lynn; Miles Cabrales; Tono Whitt Andrea; Dwain Lilly; Bobby Frazier; Katherine Peters; Rebecca Wiley; Rebecca Silverman; Richard Lora; Calos Calvo Supervising Physician Co-Signing Physician Notes Attending Addendum: Case reviewed with the advanced practitioner. I have personally performed a history and physical examination on the patient. I have reviewed the advanced practitioner's documentation on the date of service referenced in note, and I agree with, and take responsibility for the plan of care. please refer to her notes for full details patient seen and examined, records reviewed by myself as well on exam, patient seen resting in bed, comfortable reports mild left lower chest discomfort, dull, now 2/10 from 05/19 after being given maalox and protonix associated with excessive belching states above symptoms exacerbated by taking Diclofenac po (GI symptoms resolved when he stopped Diclofenac 5 days before surgery) denies melena/hematochezia, hematemesis, anorexia, dysphagia no dyspnea, palpitations, dizziness no other symptoms VS noted and reviewed oriented x 3 , not in distress, speaks in sentences with no effort nor accessory muscle use normal rate, regular rhythm, no murmurs clear breath sounds bilaterally non distended, soft, nontender no bipedal edema, erythema, warmth no neuro deficits all labs, imaging noted and reviewed ASSESSMENT AND PLAN> CHEST PAIN likely GI etiology- possible gastritis, peptic ulcer disease, in the setting of chronic Diclofenac use (5 yrs) -- worsened by IV Decadron -- improving with Maalox and Protonix continue Protonix BID and PRN Maalox recommend to NSAIDs if ASA BID is recommended for DVT prophylaxis, always take with a full stomach recommend ff up with GI as outpatient soon for consideration of EGD r/o ACS -- trop x 1 negative, trend EKG no signs of acute ischemia echo in AM had a stress test 4 months ago negative HTN - continue Amlodipine HLD - continue statin other diagnoses and plan of care as per advanced practitioner's notes I spent a total of 35 minutes coordinating, documenting, and providing care for this patient, excluding time spent in the performance of separately billed services or time spent by another provider/QHP. Mauricio Reyes MD
--- NOTE | 2024-11-11 12:57 | Hospitalist Progress Note ---
Date of Service November 11, 2024 Assessment & Plan (1) Atypical chest pain: (2) NSAID induced gastritis: (3) Prediabetes: (4) HTN (hypertension): (5) S/P total left hip arthroplasty: (6) Osteoarthrosis: (7) Chronic anal fissure: Plan Patient 64-year-old gentleman who initially presented for left hip arthroplasty. Postoperative complained of some chest pain. After further evaluation of patient, suspect this chest pain is actually epigastric pain. High suspicion for NSAID induced gastritis. Patient reports he has been on Voltaren twice a day for years. Would recommend discontinuing all NSAIDs with the exception of his aspirin which is being used for VTE prophylaxis. Would discontinue aspirin as soon as possible per orthopedics recommendation Continue Tylenol and oxycodone for pain Increase omeprazole to 40 mg 2 times daily for 4 weeks then can decrease to 40 m g daily Patient's hemoglobin A1c is slightly elevated, indicating prediabetes, would recommend diet control and regular follow-up on the glucose levels, patient may at some point need to start oral medications for management of diabetes depending on how well he does with dietary modification Medically patient is able to return to [facility] facility when deemed appropriate by his attending. Admission and Anticipated Discharge Date Admission Date: November 10, 2024 Subjective Patient reports feeling much better today. No recurrent chest pain. When asked where his pain was he does point more to the epigastric area Physical Exam Physical Exam: Constitutional: Alert, nontoxic HEENT: Mucous membranes moist. Lungs: Clear to auscultation, decreased, no wheezes rales or rhonchi CV: S1-S2, regular Abdomen: Soft, nontender, nondistended Psych: Cooperative, normal mood Results & Data Results & Data Vital Signs (Past 12 Hours) Vital Signs Temp Pulse Resp BP BP Pulse Ox O2 Del Method 11/11/24 07:30 36.6 C 64 18 110/66 95 Room Air 11/11/24 04:15 36.7 C 67 18 110/62 96 Room Air Diagnostic Findings Reviewed imaging, laboratory and diagnostic studies. Pertinent findings as bel ow. Troponins negative times all sets WBC 16.0, increased due to steroids Hemoglobin 11.7, stable Electrolytes stable Glucose 113 Hemoglobin A1c 5.8%
[2024-11-13] MEDS ORDERED: Scopolamine REMOVE TRANSDERM PATCH ONE (08:00)
== END 2024-11-11 18:34 ==
LOC: ASU 06:44 → 3E 06:44